=== PATIENT | female | born 1955 | race Caucasian/White ===

== ENCOUNTER → 2017-01-10 | Outpatient (CLI) | payer BC | LOC: MC.RAD 11:20 | DX: Z12.31 Encounter for screening mammogram for malignant neoplasm of breast (principal); N64.89 Other specified disorders of breast ==

== ENCOUNTER → 2017-01-15 | Outpatient (CLI) | payer BC | LOC: MC.RAD 10:58 | DX: R92.2 Inconclusive mammogram (principal); N64.89 Other specified disorders of breast ==

== ENCOUNTER → 2018-03-05 | Outpatient (CLI) | payer BC | LOC: MC.RAD 16:00 | DX: Z12.31 Encounter for screening mammogram for malignant neoplasm of breast (principal) ==

== ENCOUNTER 2018-04-29 13:43 | Day surgery (SDC) | payer BC ==
[~2018-04-29] VITALS: Ht 177.8 cm; Wt 61.4 kg
[2018-04-29 14:02] VITALS: BP 88/59; PULSE 66; TEMP 97.7
[2018-04-29] MEDS ORDERED: TAPAZOLE5 MG PO (14:02)
[2018-04-29 15:30] VITALS: BP 95/58; PULSE 62; TEMP 98.3
--- NOTE | 2018-04-29 15:30 | NUR ---
Patient arrives to [facility] [place] [address] via cart, accompanied by Endo RN [place]. Patient is alert and oriented. Ambulates with standby assist to chair in room. Monitoring applied - VSS and WNL on room air. Denies any pain or nausea. Offered and receives juice and crackers. at the bedside. Call light in reach. Will continue to monitor.
[2018-04-29 15:45] VITALS: BP 86/57; PULSE 57
--- NOTE | 2018-04-29 15:45 | NUR ---
VSS on room air. BP is 86/57, which is near her admission BP reading of 88/59 and normal per patient. Patient is resting comfortably in room. Tolerating PO well. Denies any pain, nausea, or need.
--- NOTE | 2018-04-29 15:46 | NUR ---
Patient asymptomatic of SBP<90. She denies any dizziness or lightheadedness.
[2018-04-29 16:00] VITALS: BP 89/57; PULSE 69
--- NOTE | 2018-04-29 16:00 | NUR ---
VSS on room air. Patient denies any pain, nausea, or need at this time. Dr. White at the bedside and talks with the patient and her . Dr. White notified of SBP<90 and is OK with patient discharging to home with SBP<90. Discharge instructions discussed, denies any questions, and verbalizes understanding. PIV removed with catheter intact and hemostasis achieved. Patient changing to clothing independently.
--- NOTE | 2018-04-29 16:18 | NUR ---
Patient escorted to exit via wheelchair. Discharged to home with ride in private vehicle at 1618.
[2018-04-29 20:28] VITALS: BP 89/58; PULSE 61
== END 2018-04-29 16:18 | disposition home or self-care (01) ==
LOC: SDCO 13:43
DX: Z12.11 Encounter for screening for malignant neoplasm of colon (principal)
CPT/HCPCS: J2250; J3010; J7030

== ENCOUNTER → 2019-04-25 | Outpatient (CLI) | payer BC ==
[~2019-04-25] MED LIST: TAPAZOLE5 MG PO
== END ==
LOC: MC.RAD 13:11
DX: Z12.31 Encounter for screening mammogram for malignant neoplasm of breast (principal)

== ENCOUNTER → 2021-01-17 | Outpatient (CLI) | payer BC | LOC: MC.RAD 09:28 | DX: Z12.31 Encounter for screening mammogram for malignant neoplasm of breast (principal) ==